=== PATIENT | female | born 1975 | race American Indian/Alaskan Native ===

== ENCOUNTER 2017-08-14 21:54 | Emergency (ER) | payer OTHER ==
[2017-08-14] MEDS ORDERED: DUONEB *Not for PRN Use IH ONE ×2 (22:05→22:26)
[2017-08-14] MEDS ORDERED: TYLENOL PO ONE (22:30)
[2017-08-14 22:48] LABS: Basophils % (Auto) 0.5 % (0.0-1.8); Eosinophils % (Auto) 0.3 % (0.0-4.3); Hematocrit 41.7 % (30.3-42.9); Hemoglobin 13.4 gm/dl (10.1-14.3); Lymphocytes % (Auto) 21.7 % (13.4-35.0); Mean Corpuscular HGB Conc 32 % (30-34); Mean Corpuscular Hemoglobin 27 pg (28-32); Mean Corpuscular Volume 83 fl (79-97); Monocytes # (Auto) 0.7 K/mm3 (0.0-0.8); Monocytes % (Auto) 7.4 % (0.0-7.3); Platelet Count 333 K/mm3 (140-440); Red Blood Count 5.01 M/mm3 (3.65-5.03); Red Cell Distribution Width 14.6 % (13.2-15.2)
[2017-08-14 22:50] LABS: BUN/Creatinine Ratio 8; Blood Urea Nitrogen 6 mg/dL (7-17); Calcium 8.2 mg/dL (8.4-10.2); Hemolysis Index 1
[2017-08-14] MEDS ORDERED: XOPENEX IH ONE (23:54)
[2017-08-14] MEDS ORDERED: ATROVENT IH ONE (23:54)
--- NOTE | 2017-08-14 23:59 | Emergency Department Report ---
ED Asthma HPI - General Chief Complaint: Adult Asthma Stated Complaint: FEVER Time Seen by Provider: 08/14/17 23:51 Source: patient Mode of arrival: Ambulatory Limitations: No Limitations - History of Present Illness Initial Comments: Patient is 42 years old female history of asthma presented to the ER with shortness of breath cough productive for sputum and fever. Patient's symptoms started today. Patient stated that she's been using albuterol but no help. Patient denied any nausea or vomiting. No chest pain. MD Complaint: "asthma attack", shortness of breath, wheezing -: This morning Asthma History: adult onset Severity: moderate Context: recent URI Associated Symptoms: productive cough, fever. denies: chest pain, hemoptysis, leg edema Treatments Prior to Arrival: inhaled bronchodilator - Related Data Home Medications Medication Instructions Recorded Confirmed Last Taken Albuterol Sulfate [Albuterol 0.63%] 0.63 mg IH TID PRN 06/06/13 06/06/13 Unknown Albuterol Sulfate [Proventil HFA] 1 - 2 puff IH Q4H PRN 06/06/13 06/06/13 Unknown Previous Rx's Medication Instructions Recorded Last Taken Type Acyclovir [Zovirax Tab] 800 mg PO Q5H #35 tab 12/01/14 Unknown Rx HYDROcodone/APAP 10-325 [[place] 1 each PO Q6HR PRN #30 tablet 12/01/14 Unknown Rx 10/325] Sulfamethoxazole/Trimethoprim 1 each PO Q12H #20 tablet 12/01/14 Unknown Rx [Bactrim Ds] Acetaminophen/Codeine [Tylenol #3] 1 tab PO Q6H PRN #10 tab 05/04/15 Unknown Rx Tobramycin 0.3% [Tobrex] 2 drop OS Q4HR #1 bottle 05/04/15 Unknown Rx Acetaminophen/Codeine [Tylenol #3] 1 tab PO Q6H PRN #15 tab 07/16/15 Unknown Rx Cyclobenzaprine [Flexeril 10 MG 10 mg PO TID PRN #12 tablet 07/16/15 Unknown Rx TAB] Cyclobenzaprine HCl [Flexeril 5 MG 5 mg PO TID #20 tab 01/14/16 Unknown Rx TAB] Ibuprofen [Motrin 600 MG tab] 600 mg PO Q8H PRN #40 tablet 01/14/16 Unknown Rx Prednisone [predniSONE 5 mg (6-Day 5 mg PO .TAPER #1 tab.ds.pk 01/14/16 Unknown Rx Pack, 21 Tabs)] Allergies Allergy/AdvReac Type Severity Reaction Status Date / Time No Known Allergies Allergy Unverified 06/06/13 10:32 ED Review of Systems ROS: Stated complaint: FEVER Other details as noted in HPI Comment: All other systems reviewed and negative Constitutional: fever. denies: chills ENT: denies: throat pain, dental pain Respiratory: cough, shortness of breath, SOB at rest, wheezing. denies: orthopnea Cardiovascular: denies: chest pain, palpitations, dyspnea on exertion Gastrointestinal: denies: abdominal pain, nausea, vomiting, diarrhea, constipation, hematemesis, melena, hematochezia Genitourinary: denies: urgency, dysuria Skin: denies: rash, lesions Neurological: denies: headache, weakness, numbness, paresthesias ED Past Medical Hx - Past Medical History Hx Hypertension: Yes Hx Headaches / Migraines: Yes Hx Asthma: Yes Additional medical history: degenerative disc disease - Surgical History Hx Breast Surgery: Yes Additional Surgical History: tubal ligation and a D & C. lump removed from right breast, HYTERECTOMY - Social History Smoking Status: Never Smoker Substance Use Type: None - Medications Home Medications: Home Medications Medication Instructions Recorded Confirmed Last Taken Type Albuterol Sulfate [Albuterol 0.63%] 0.63 mg IH TID PRN 06/06/13 06/06/13 Unknown History Albuterol Sulfate [Proventil HFA] 1 - 2 puff IH Q4H PRN 06/06/13 06/06/13 Unknown History Acyclovir [Zovirax Tab] 800 mg PO Q5H #35 tab 12/01/14 Unknown Rx HYDROcodone/APAP 10-325 [[place] 1 each PO Q6HR PRN #30 tablet 12/01/14 Unknown Rx 10/325] Sulfamethoxazole/Trimethoprim 1 each PO Q12H #20 tablet 12/01/14 Unknown Rx [Bactrim Ds] Acetaminophen/Codeine [Tylenol #3] 1 tab PO Q6H PRN #10 tab 05/04/15 Unknown Rx Tobramycin 0.3% [Tobrex] 2 drop OS Q4HR #1 bottle 05/04/15 Unknown Rx Acetaminophen/Codeine [Tylenol #3] 1 tab PO Q6H PRN #15 tab 07/16/15 Unknown Rx Cyclobenzaprine [Flexeril 10 MG 10 mg PO TID PRN #12 tablet 07/16/15 Unknown Rx TAB] Cyclobenzaprine HCl [Flexeril 5 MG 5 mg PO TID #20 tab 01/14/16 Unknown Rx TAB] Ibuprofen [Motrin 600 MG tab] 600 mg PO Q8H PRN #40 tablet 01/14/16 Unknown Rx Prednisone [predniSONE 5 mg (6-Day 5 mg PO .TAPER #1 tab.ds.pk 01/14/16 Unknown Rx Pack, 21 Tabs)] ED Physical Exam - General Limitations: No Limitations General appearance: alert, in no apparent distress - Head Head exam: Present: atraumatic, normocephalic, normal inspection - Eye Eye exam: Present: normal appearance, PERRL - ENT ENT exam: Present: normal exam, normal orophraynx, mucous membranes moist - Neck Neck exam: Present: normal inspection, full ROM. Absent: tenderness, meningismus - Respiratory Respiratory exam: Present: wheezes, rhonchi. Absent: respiratory distress, rales, stridor, chest wall tenderness, accessory muscle use, decreased breath sounds, prolonged expiratory - Cardiovascular Cardiovascular Exam: Present: regular rate, normal rhythm, normal heart sounds - GI/Abdominal GI/Abdominal exam: Present: soft, normal bowel sounds. Absent: distended, tenderness, guarding, rebound, rigid, organomegaly, mass, bruit, pulsatile mass , hernia - Extremities Exam Extremities exam: Present: normal inspection, full ROM, normal capillary refill - Back Exam Back exam: Present: normal inspection, full ROM. Absent: tenderness, CVA tenderness (R), CVA tenderness (L), muscle spasm, paraspinal tenderness, vertebral tenderness - Neurological Exam Neurological exam: Present: alert, oriented X3, CN II-XII intact, normal gait - Skin Skin exam: Present: warm, intact, normal color. Absent: cyanosis, diaphoretic, erythema ED Course Vital Signs 08/14/17 08/15/17 08/15/17 22:21 00:00 00:30 Temperature 100.6 F H 99.4 F Pulse Rate 121 H 116 H Pulse Rate [ 87 Posterior] Respiratory 22 17 Rate Respiratory 17 Rate [Posterior ] Blood Pressure 139/83 Blood Pressure 117/79 [Left] O2 Sat by Pulse 98 98 Oximetry 08/15/17 00:53 Temperature Pulse Rate Pulse Rate [ 96 H Posterior] Respiratory Rate Respiratory 20 Rate [Posterior ] Blood Pressure Blood Pressure [Left] O2 Sat by Pulse Oximetry - Reevaluation(s) Reevaluation #1: 08/15/17 01:20 Patient stated that she is feeling much better. ED Medical Decision Making - Lab Data Result diagrams: 08/14/17 22:32 08/14/17 22:32 - EKG Data -: EKG Interpreted by Ia EKG shows normal: sinus rhythm Rate: tachycardia - EKG Data Interpretation: no acute changes - Radiology Data Radiology results: report reviewed Referring Physician: ANGIE DRAKE Patient Name: ENMA KAM Date of : 1975 Sex: Female Report Date: 2017-08-15 Report Status: [place] [address] XRay Report Signed Patient: ENMA KAM MR#: [id number] : 1975 Acct:[id number] Age/Sex: 42 / F ADM Date: 08/14/17 Loc: ED Attending Dr: Ordering Physician: ANGIE DRAKE Date of Service: 08/14/17 Procedure(s): XR chest routine 2V Accession Number(s): [id number] cc: ANGIE DRAKE Fluoro Time In Minutes: FINAL REPORT EXAM: XR CHEST ROUTINE 2V HISTORY: cough and fever COMPARISON: None available. FINDINGS:: Frontal and lateral views of the chest obtained. Cardiac silhouette is within normal limits. No focal consolidation or effusion. No pneumothorax. Visualized bony thorax is grossly intact. IMPRESSION:: No acute findings. Transcribed By: LMA Dictated By: COREY ARREGUIN MD Electronically Authenticated By: COREY ARREGUIN MD Signed Date/Time: 08/15/1713 DD/ TD/TT: 08/15/1713 Critical care attestation.: If time is entered above; I have spent that time in minutes in the direct care of this critically ill patient, excluding procedure time. ED Disposition Clinical Impression: Asthmatic bronchitis Disposition: DC TO HOME OR SELFCARE Is pt being admited?: No Condition: Stable Instructions: Asthma (ED), Acute Bronchitis (ED) Referrals: CHERYL HAY MD [Primary Care Provider] - 3-5 Days
[2017-08-15 00:01] VITALS: BP 117/79
--- NOTE | 2017-08-15 00:18 | XRay Report ---
FINAL REPORT EXAM: XR CHEST ROUTINE 2V HISTORY: cough and fever COMPARISON: None available. FINDINGS:: Frontal and lateral views of the chest obtained. Cardiac silhouette is within normal limits. No focal consolidation or effusion. No pneumothorax. Visualized bony thorax is grossly intact. IMPRESSION:: No acute findings.
== END 2017-08-15 01:28 | disposition home or self-care (01) ==
LOC: ED 21:54
DX: J45.909 Unspecified asthma, uncomplicated (principal); I10 Essential (primary) hypertension; G43.909 Migraine, unspecified, not intractable, without status migrainosus; Z98.51 Tubal ligation status; Z90.710 Acquired absence of both cervix and uterus
CPT/HCPCS: 36415; 71046; 80048; 85025; 93005; 93010; 94640; 99284; J2930

== ENCOUNTER 2018-10-23 07:27 | Emergency (ER) | payer OTHER ==
[2018-10-23 07:34] VITALS: BP 139/88
[2018-10-23] MEDS ORDERED: IBUPROFEN PO ONE (08:35)
--- NOTE | 2018-10-23 08:37 | Emergency Department Report ---
HPI - General Chief Complaint: Extremity Injury, Lower Time Seen by Provider: 10/23/18 08:12 - HPI HPI: She is a 43-year-old female who presents to ED complaining of left knee pain status post fall trip and fall while going into her house on Tuesday. Left knee pain anteriorly which is unresolved. She denies difficulty walking, loss of sensation, laceration or any deformity. She describes as a ground-level fall and fell on her knee. She denies us of consciousness or hitting her head during this incident. She was able to get up and ambulate into the house herself. ED Past Medical Hx - Past Medical History Hx Hypertension: Yes Hx Headaches / Migraines: Yes Hx Asthma: Yes Additional medical history: degenerative disc disease - Surgical History Hx Breast Surgery: Yes Additional Surgical History: tubal ligation and a D & C. lump removed from right breast, HYTERECTOMY - Social History Smoking Status: Never Smoker Substance Use Type: None - Medications Home Medications: Home Medications Medication Instructions Recorded Confirmed Last Taken Type Albuterol Sulfate [Albuterol 0.63%] 0.63 mg IH TID PRN 06/06/13 06/06/13 Unknown History Albuterol Sulfate [Proventil HFA] 1 - 2 puff IH Q4H PRN 06/06/13 06/06/13 Unknown History Acyclovir [Zovirax Tab] 800 mg PO Q5H #35 tab 12/01/14 Unknown Rx HYDROcodone/APAP 10-325 [[place] 1 each PO Q6HR PRN #30 tablet 12/01/14 Unknown Rx 10/325] Sulfamethoxazole/Trimethoprim 1 each PO Q12H #20 tablet 12/01/14 Unknown Rx [Bactrim Ds] Acetaminophen/Codeine [Tylenol #3] 1 tab PO Q6H PRN #10 tab 05/04/15 Unknown Rx Tobramycin 0.3% [Tobrex] 2 drop OS Q4HR #1 bottle 05/04/15 Unknown Rx Acetaminophen/Codeine [Tylenol #3] 1 tab PO Q6H PRN #15 tab 07/16/15 Unknown Rx Cyclobenzaprine [Flexeril 10 MG 10 mg PO TID PRN #12 tablet 07/16/15 Unknown Rx TAB] Cyclobenzaprine HCl [Flexeril 5 MG 5 mg PO TID #20 tab 01/14/16 Unknown Rx TAB] Ibuprofen [Motrin 600 MG tab] 600 mg PO Q8H PRN #40 tablet 01/14/16 Unknown Rx Prednisone [predniSONE 5 mg (6-Day 5 mg PO .TAPER #1 tab.ds.pk 01/14/16 Unknown Rx Pack, 21 Tabs)] ALBUTEROL Inhaler (OR & NICU) 2 puff IH QID PRN #1 inhalation 08/15/17 Unknown Rx [ProAir HFA Inhaler] Azithromycin [Zithromax Z-SALVADOR] 250 mg PO DAILY 1 Days tab 08/15/17 Unknown Rx Prednisone [predniSONE 10 mg 10 mg PO .TAPER #1 tab.ds.pk 08/15/17 Unknown Rx (6-Day Pack, 21 Tabs)] HYDROcodone/APAP 5-325 [[place] 1 each PO Q6HR PRN #15 tablet 04/05/18 Unknown Rx 5/325] Ibuprofen [Motrin] 600 mg PO Q8H PRN #20 tablet 04/05/18 Unknown Rx Cyclobenzaprine [Flexeril] 10 mg PO QHS PRN #10 tablet 10/23/18 Unknown Rx Ibuprofen [Motrin] 800 mg PO Q8HR #30 tablet 10/23/18 Unknown Rx ED Review of Systems ROS: Stated complaint: RT KNEE INJURY/PAIN Other details as noted in HPI Comment: All other systems reviewed and negative Physical Exam - Physical Exam Vital Signs: Vital Signs 10/23/18 07:32 Temperature 98.6 F Pulse Rate 102 H Respiratory 16 Rate Blood Pressure 139/88 O2 Sat by Pulse 97 Oximetry Physical Exam: GENERAL: Alert and oriented x3, no apparent distress, Normal Gait, atraumatic. HEAD: Head is normocephalic and a-traumatic. NECK: Supple. Non edematous, No lymphadenopathy or thyromegaly. No C-spine tenderness, full range of motion LUNGS: Symetrical with respiration, No wheezing, no rales or crackles, CTAB. HEART: S1, S2 present, regular rate and rhythm without murmur, no rubs, no gallops. Non tender to palpation BACK: Full range of motion, no spinal tenderness, Tenderness to palpation of the trapezius muscles and latissimus dorsi muscles of the back EXTREMITIES/MUSCULOSKELETAL: No cyanosis, clubbing, rash, lesions or edema of the knee. Full ROM bilaterally. LE Pulses 2+ bilaterally. LE 5+ strength bilaterally, NEUROLOGIC: The patient is cooperative with no focal neurologic deficits. SKIN: Warm and dry, No lesions, No ulceration or induration present. ED Course Vital Signs 10/23/18 07:32 Temperature 98.6 F Pulse Rate 102 H Respiratory 16 Rate Blood Pressure 139/88 O2 Sat by Pulse 97 Oximetry ED Medical Decision Making - Medical Decision Making 23-year-old female presents with left knee pain Patient received 800 mg of Motrin in the ED X-ray shows no acute fractures or dislocation. Vital signs are normal patient is in no acute distress. Signed discussed follow-up with orthopedics/primary care physician. Critical care attestation.: If time is entered above; I have spent that time in minutes in the direct care of this critically ill patient, excluding procedure time. ED Disposition Clinical Impression: Knee pain, left Disposition: DC-01 TO HOME OR SELFCARE Is pt being admited?: No Does the pt Need Aspirin: No Condition: Stable Instructions: Knee Pain (ED), Arthralgia (ED), Knee Exercises (GEN) Additional Instructions: Make sure to follow up with the primary care physician as discussed. Take all your medications as you've been prescribed. If you have any worsening symptoms or develop new symptoms please return to ED immediately. Prescriptions: Cyclobenzaprine [Flexeril] 10 mg PO QHS PRN #10 tablet PRN Reason: Muscle Spasm Ibuprofen [Motrin] 800 mg PO Q8HR #30 tablet Referrals: FABY BUSTILLOS MD [Primary Care Provider] - 3-5 Days Forms: Work/School Release Form(ED) Time of Disposition: 09:04
--- NOTE | 2018-10-23 09:11 | XRay Report ---
LEFT KNEE, 3 VIEWS History: Left knee pain. Findings: 3 views of the left knee are presented. No comparison. There is no evidence for fracture, significant joint pathology or soft tissue abnormality. Impression: No acute process identified.
== END 2018-10-23 09:52 | disposition home or self-care (01) ==
LOC: ED 07:27
DX: M25.562 Pain in left knee (principal); I10 Essential (primary) hypertension; G43.909 Migraine, unspecified, not intractable, without status migrainosus; J45.909 Unspecified asthma, uncomplicated; Z90.710 Acquired absence of both cervix and uterus; Z98.51 Tubal ligation status; Z79.899 Other long term (current) drug therapy
CPT/HCPCS: 99283